=== PATIENT | male | born 1960 | race Caucasian/White ===

== ENCOUNTER → 2024-04-19 15:07 | Outpatient (CLI) | payer SELFPAY ==
--- NOTE | 2024-04-19 15:11 | DI.US.S_ITS ---
PROCEDURE: US SCROTUM INDICATIONS: Increasing right testicular swelling TECHNIQUE: Real-time scanning was performed of the scrotum and testicles, with image documentation. Color and pulse Doppler interrogation was performed of both testicles. COMPARISON: None. FINDINGS: Right: Testicle is normal in size at 4.2 x 1.7 x 4.9 cm, and homogenous in echotexture. Epididymis is normal in overall size and morphology. No hydrocele or varicoceles. There is a very large cystic structure either representing spermatocele or epididymal cyst measuring 6.7 x 9.2 x 4.8 cm. Overlying scrotal skin is normal in thickness. Left: Testicle is normal in size at 4.9 x 3.7 x 2.7 cm, and homogeneous in echotexture. Epididymis is normal in overall size and morphology. No hydrocele or varicoceles. Overlying scrotal skin is normal in thickness. Doppler: Color and pulse Doppler demonstrate normal and symmetric arterial flow in both testicles. IMPRESSION: 1. Very large cystic structure of the right scrotum, either representing spermatocele or epididymal cyst, measuring 9.2 cm in maximum diameter. 2. Otherwise unremarkable scrotal ultrasound. No testicular torsion, testicular mass, epididymitis, or orchitis. Dictated by: Jim Villalba M.D. on 04/20/2024 at 8:59 Approved by: Jim Villalba M.D. on 04/20/2024 at 9:01
== END ==
PROVIDERS: PCP Nurse Practitioner Family; Referring Provider Nurse Practitioner Family; Visit Provider Nurse Practitioner Family
DX: N50.89 Other specified disorders of the male genital organs (principal); L72.9 Follicular cyst of the skin and subcutaneous tissue, unspecified
CPT/HCPCS: 76870; 93975

== ENCOUNTER 2024-07-08 07:36 | Day surgery (SDC) | payer OTHER, SELFPAY ==
[2024-06-26 11:47] VITALS: BMI 21.2
[2024-07-08] VITALS (8 sets, daily range): BP systolic 131–150; BP diastolic 84–97; PULSE 82–92; RESP 6–18; TEMP 36.4–37.1; O2SAT 97–100; BMI 21.2
--- NOTE | 2024-07-08 | PATH_ITS ---
[facility] Accession Number: [id number] No. of containers..01 Tissue . 01 Material submitted: . spermatic cord - RIGHT SPERMATOCELE . 01 Diagnosis: RIGHT SPERMATOCELE, SPERMATOCELECTOMY: Findings consistent with spermatocele. Negative for atypia or malignancy. MRV 07/10/2024 1557 Local . 01 Electronically signed: . Momo Alford MD, Pathologist NPI- [id number] . 01 Gross description: . Received in formalin with two patient identifiers and right spermatocele, is a translucent thin-walled cystic structure, 9.7 x 6.0 x 2.2 cm and inked blue. The cyst containing clear serous fluid, and the andrade average less than 0.1 cm thick with no excrescences or thickening identified. Vermin Exterminator sections are submitted in A1-A2. ([id number]) /MRV 07/09/20245 Local . 01 Pathologist provided ICD-10: N43.40 . 01 CPT . 771125 Specimen Comment: A courtesy copy of this report has been sent to [facility]ology Performed at: [address] [address], [place], [place] [id number] MD Han Cohen MD Phone: [phone]
[2024-07-08] MEDS: LACTATED RINGERS 1,000 ML 42 ML IV ×2 (08:01→10:45)
[2024-07-08] MEDS: ACETAMINOPHEN 325 MG TABLET 975 MG PO (08:02)
--- NOTE | 2024-07-08 08:23 | PM.PREOP ---
Pre-operative Note COVID-19 COVID-19 status: Not tested Interval Note History & Physical reviewed/Exam performed by Physician: Yes Changes to H&P: No
[2024-07-08] MEDS: CEFAZOLIN 2 GM/100 ML PREMIX 100 ML IV (08:50)
--- NOTE | 2024-07-08 08:58 | SUR.OPER ---
Supine on padded OR bed, head on pillow, arms secured on padded arm boards at <90 degrees abduction, legs uncrossed, safety belt at thigh, tape over blanket over lower legs.
[2024-07-08] MEDS: BUPIVACAINE 0.5% (PF) 10 ML VIAL INJ (10:03)
[2024-07-08] MEDS: LIDOCAINE 1% 20 ML INJ (10:03)
[2024-07-08] MEDS: BACITRACIN 28 GM OINT 28 APPLIC TOP (10:05)
--- NOTE | 2024-07-08 10:17 | PM.OP.1 ---
Operative Date/Time/Diagnoses Pre-op diagnosis: Right spermatocele Post-op diagnosis: same Procedure & Clinicians Procedure: Right spermatocelectomy Same procedure as scheduled: Yes Indications: 64 y/o M noted to have a 9.2cm right spermatocele that is causing him significant issues on a day to day basis and would prefer surgical excision. Surgeon: Adalid Shetty Click Yes if Unassisted: Yes Anesthesia Type: General Operative Notes Findings: Large right spermatocele Closure Type: primary Specimen(s): other (Right spermatocele) Estimated Blood Loss (mL): 10 Blood products transfused: none Procedure in detail: Patient was identified in the preoperative holding area and consent confirmed. He was then brought to the operating room and placed supine on the operating room table where general anesthesia was induced. All bony prominences were then properly padded and he was prepped and draped in the standard sterile fashion. A surgical timeout was conducted and all members of the operating team were in agreement. A 4cm transverse incision was marked on the right hemiscrotum using a marking pen. This was then incised using a 15 blade. The dissection was then carried down through the subcutaneous tissue and dartos fascia using bovie electrocautery. The testicle was then delivered onto the operative field through the incision. The tunica vaginalis was then incised using Bovie electrocautery and attention was turned to the large right spermatocele. This was dissected free from the surrounding epididymis and tunica vaginalis and the stalk from which it arised was isolated. This was ligated using 3-0 silk ties. The spermatocele sac was then excised. Throughout the entire procedure, care was taken to avoid the right testicle and spermatic cord, which were both preserved at case end. The tunica vaginalis overlying the right epididymis was then closed using 3-0 Vicryl in a running fashion. The scrotum was then inspected for hemostasis, which was noted to be excellent. A marlin drain was then brought out the inferior most portion of his right hemiscrotum and secured to the skin using a 3-0 Nylon stitch. The right testicle was placed back into the right hemiscrotum in correct anatomic position and without twisting of the spermatic cord. The incision was then closed in two separate layers. Dartos was reapproximated using 3-0 Vicryl in a running fashion. The skin edges were then reapproximated using 3-0 Chromic in a running baseball stitch fashion. Bacitracin was then applied to the incision. A total of 20cc of 1:1 mixture of 1% Lidocaine plain and 0.5% Marcaine plain was used for incision and cord block anesthetic. Fluff gauze and scrotal support was then placed over the incision. Anesthesia was reversed, he was extubated in the OR and transferred to the PACU in stable condition for recovery. Complications: none Post-operative Condition: stable Disposition: PACU Plan for aftercare: Discharge home from PACU. Will return to Urology clinic on 11 Jul 2024 to have his marlin drain removed.
== END 2024-07-08 11:53 | disposition home or self-care (01) ==
PROVIDERS: PCP Nurse Practitioner Family; Referring Provider Urology; Visit Provider Urology
PROC: (CPT 54840; principal; 2024-07-08 08:45)
DX: N43.40 Spermatocele of epididymis, unspecified (principal)
CPT/HCPCS: 54840; J0690; J1100; J1885; J2405; J2704